=== PATIENT | male | born 1950 | race Caucasian/White ===

== ENCOUNTER → 2018-11-25 09:44 | Outpatient (CLI) | payer MEDICARE, BC, SELFPAY ==
[2018-10-13 08:17] VITALS: BMI 28.6
--- NOTE | 2018-11-25 09:54 | RAD_ITS ---
STUDY: X-RAY - RIGHT HAND REASON FOR EXAM: Male, 68 years old. Pain in the right hand, swelling. TECHNIQUE: 3 view(s) of the hand. COMPARISON: None. 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 Otherwise. Minimal features of the interphalangeal joints. No apparent degeneration of the metacarpophalangeal joints. No significant degenerative features in the wrist. No fracture. No apparent soft tissue swelling. Tiny radiodense probably metallic fragment apparently within the skin to the base of the thumb at the level of the metacarpal phalangeal joint. RAD/Hand Min 3 Views IMPRESSION: DJD. No acute radiographic abnormality is otherwise evident. There is no deep soft tissue gas. No apparent soft tissue swelling. There is a radiodense probably metallic fragment in the soft tissue at the base of the thumb. Electronically Signed: Alonzo Thurman MD at 10:29 EDT Tel , Service support ,
== END ==
PROVIDERS: Family Provider Internal Medicine; PCP Internal Medicine; Referring Provider Internal Medicine; Visit Provider Internal Medicine
DX: M79.641 Pain in right hand (principal)
CPT/HCPCS: 73130

== ENCOUNTER → 2020-12-22 10:30 | Outpatient (CLI) | payer MEDICARE, BC, SELFPAY | PROVIDERS: PCP Internal Medicine; Visit Provider Internal Medicine | DX: U07.1 COVID-19 (principal) | CPT/HCPCS: 87635; U0005; U0003 ==

== ENCOUNTER 2020-12-23 14:35 | Outpatient (CLI) | payer MEDICARE, BC, SELFPAY ==
[2020-12-23 14:53] VITALS: BP 140/85; PULSE 65; RESP 16; TEMP 37.2; O2SAT 98; BMI 26.7
[2020-12-23] MEDS: 0.9% Saline Lock 10 ML Syringe IV (15:03)
[2020-12-23 15:35] VITALS: BP 142/86; PULSE 64; RESP 16; TEMP 37; O2SAT 99
[2020-12-23 16:37] VITALS: BP 140/86; PULSE 62; RESP 16; TEMP 37.6
== END 2020-12-23 16:40 | disposition home or self-care (01) ==
LOC: MS2OUT 14:35 → MS2 14:36
PROVIDERS: PCP Internal Medicine; Referring Provider Nurse Practitioner Family; Visit Provider Nurse Practitioner Family
DX: Z23 Encounter for immunization (principal); U07.1 COVID-19
CPT/HCPCS: J7050; M0243; A4216; Q0244

== ENCOUNTER 2023-02-15 14:27 | Outpatient (RCR) | payer MEDICARE, BC, SELFPAY ==
--- NOTE | 2023-02-15 15:57 | HP.PTEVAL ---
Patient's Visit Information Visit Information Visit Information: ALAINA WORKMAN is a 72 year old M referred to Physical Therapy by Dr. Dahlia Jo MD with a diagnosis of NECK PAIN. Date of Evaluation: 02/15/23 Physical Therapist: Hawk Knight PT, Cert MDT, OCS Visit Plan Frequency: 2x /Week Duration: 4 Weeks Plan: WILL TRY HEP PT INTERVTIONS CERVICAL ROM ,POSTURAL EX'S ,THORACIC MOBILITY ,AND MANUAL THERAPY ,ICTX Subjective Subjective: This 72 y/o male presents to physical therapy with neck pain. Patient has had symptoms for ~ 2 months with tingling in arm and stiffness in neck . Symptoms progressively worsen. Seen DR Matthews routine visit but mention about neck issues. No x-rays or medication. Aggravating factors in AM ,sitting ,laying down. Alleviating factors not specific. Denies HYDE /nausea/tinnitus/. Patient sleeping good at night. Patient golf and doesn't symptoms. Patient has no trauma. Patient has h/o of pain in neck. Patient gaols to decrease symptoms in neck. SOCAIL: VOCATION: retired HOOBIES: golfing/skiing Objective Objective: POSTURE: rounded shoulders NEURO: denies paresthesia/tingling, reflexes C5-6-7 PALAPTION: UT /levator AROM: BUE WFL MMT: grossly 5/5 CERVICAL ROM: min loss ,extension ,lateral flexion/rotation mod tight Special Tests C/S Radiculapathy - Left Upper limb tension test: Negative C/S Radiculapathy - Right Upper limb tension test: Negative C/S Radiculapathy - Left Spurlings: Positive C/S Radiculapathy - Right Spurlings: Negative C/S Radiculapathy - Left Cervical distraction: Negative C/S Radiculapathy - Right Cervical distraction: Negative C/S Radiculapathy - Left Relief test: Negative C/S Radiculapathy - Right Relief test: Negative Sharp Dionicio: Negative Vertebral Artery Test: Negative Alar Ligament Test: Negative Balance/Special Test Scores Oswestry Neck Score: 4 Goals Goal 1:: Patient to be I with HEP for neck Goal Time Frame: 4-6 Weeks Goal 2:: Patient to improve cervical ROM for function of recovery to improve function with driving to left Goal Time Frame: 4-6 Weeks Goal 3:: Patient to demonstrate 50% improve function with less pain Goal Time Frame: 4-6 Weeks Goal 4:: Patient to improve neck oswestry score by 5 points to improve function and QOL Goal Time Frame: 4-6 Weeks Rehabilitation Potential Physical Therapy Diagnosis: Patient has cervical pain due to possible foraminal stenosis left side with pain with position and motion testing to left thus benefit from PT and HEP Rehabilitation Potential: Good Anticipated Interventions Patient/Client Instruction: Educate patient on: Condition and Plan of Care For the Purpose of:: To decrease pain, To increase ROM, To improve muscle performance and motor function, To increase tolerance to activity/condition/position, To improve ability of physical actions for home/community/work/leisure, To improve health of tissue, To decrease soft tissue restriction, To increase flexibility/ROM, To prevent re-injury and To improve tolerance to ADL's Therapeutic Exercise to Include: Strength training, Postural training, Flexibilty training and Dynamic Lumbar Stabilization For the Purpose of:: To decrease pain, To increase ROM, To improve muscle performance and motor function, To improve ability to perform ADL's, To increase tolerance to activity/condition/position, To improve ability of physical actions for home/community/work/leisure, To improve health of tissue, To decrease soft tissue restriction, To increase flexibility/ROM, To prevent re-injury and To improve tolerance to ADL's TENS: Yes IF ES: Yes Cryotherapy (ice pack, ice massage): Yes Thermo therapy (hot pack): Yes Ultrasound (thermal/non thermal): Yes For the Purpose of:: To decrease pain, To increase ROM, To improve nutrient delivery to tissue, To improve health of tissue and To decrease soft tissue restriction Text: Thank you for the opportunity to evaluate your patient. For Medicare and Medicare HMO plans, please review the plan of care and approve it. It will need to be FAXED BACK to us at [phone] for Medicare purposes. For Medicare only, by signing this I certify the plan of care. Please let me know if there are questions or concerns regarding this plan of care. Physician Signature: Date:
== END 2023-02-15 19:00 | disposition home or self-care (01) ==
LOC: PT 14:27
PROVIDERS: PCP Internal Medicine; Referring Provider Internal Medicine; Visit Provider Internal Medicine
DX: M54.2 Cervicalgia (principal)
CPT/HCPCS: 97110; 97162

== ENCOUNTER → 2023-10-10 | Outpatient (CLI) | payer MEDICARE, BC, SELFPAY ==
--- NOTE | 2023-10-22 11:46 | NEURO ---
NCS and/or EMG Patient Report Ordering Doctor: Dahlia Jo DATE OF SERVICE: 10/22/23 Suraj presents with complaints of neck pain and left upper extremity burning. Electrodiagnostic Findings: Left median motor nerve demonstrates normal distal latency, amplitude and conduction velocity. Left ulnar motor response is normal. Prolonged left median F-wave. Normal left ulnar F-wave. Prolonged left median sensory latency at the wrist and palm. Needle EMG testing was performed in the left upper limb. All muscles tested showed no evidence of denervation with normal motor unit action potentials. Electrodiagnostic Assessment: This is an abnormal study in the left upper limb. 1) Findings suggestive of left-sided median mononeuropathy, consistent with a mild left carpal tunnel syndrome. 2) No electrodiagnostic evidence for cervical radiculopathy or brachial plexopathy. 3) No electrodiagnostic evidence for cubital tunnel syndrome. Multi Select Codes Neurology Neurology Interp Codes: 30015-20 Musc test done w/n test comp (interp) and 49797-27 Nrv cndj test 7-8 studies (interp)
== END | disposition home or self-care (01) ==
PROVIDERS: PCP Internal Medicine; Referring Provider Internal Medicine; Visit Provider Internal Medicine
DX: R20.2 Paresthesia of skin (principal)
CPT/HCPCS: 95886; 95910

== ENCOUNTER → 2025-01-12 | Outpatient (CLI) | payer MEDICARE, BC, SELFPAY ==
[2025-01-12 13:05] LABS: Red Blood Cells-Urine 0 SEEN /hpf (0-5); Squamous Epithelial Cells - UA 0 SEEN /hpf (0-5)
[2025-01-12 13:11] LABS: Hematocrit 46.4 % (40-54); Hemoglobin 15.4 g/dL (13.0-16.5); Immature Granulocytes Count 0.020 X10^3/uL (0.0-0.0); Mean Corp Hgb Conc 33.2 g/dL (32-36); Mean Corpuscular Volume 91.0 fL (80-94); Mean Platelet Vol. 9.2 fl (6.2-12.0); NRBC Flagged by Analyzer 0 % (0-5); Platelet Count 280 K/mm3 (150-450); RBC Distribution Width CV 11.9 % (11.6-14.6); RBC Distribution Width SD 39.3 fl (35.1-43.9); Red Blood Count 5.10 M/mm3 (4.6-6.2); White Blood Count 6.8 K/mm3 (4.4-11.0)
[2025-01-12 13:13] LABS: Color, Urine Yellow (Yellow); Glucose, Dipstick Normal (Normal); Ketone-Dipstick Negative (Negative); Leukocyte Esterase-Dipstick Negative /ul (Negative); Nitrite-Dipstick Negative (Negative); Occult Blood-Urine Negative /ul (Negative); Protein-Dipstick 15 mg/dl (Negative); Specific Gravity, Urine 1.015 (1.002-1.030); Urine Bilirubin Dipstick Negative (Negative)
[2025-01-12 13:27] LABS: Mucous, Urine RARE /hpf (<or=2+)
[2025-01-12 13:30] LABS: AST(SGOT) 18 U/L (<=37); Alanine Aminotransfer ALT/SGPT 19 U/L (<=46); Albumin, Serum 4.5 g/dL (3.4-4.8); Alkaline Phosphatase 82 U/L (40-129); Anion Gap 10 (5-15); BUN 16 mg/dL (4-19); BUN/Creat Ratio 16.2 RATIO (10-20); Calcium,Total 9.8 mg/dL (7.6-11.0); Carbon Dioxide 27.1 mmol/L (21.0-32.0); Chloride 103 mmol/L (98-108); Globulin 2.5 g/dL (2.2-4.2); Glucose 104 mg/dL (70-99); Potassium 5.0 mmol/L (3.3-5.1)
[2025-01-12 14:00] LABS: Creatinine, Urine (random) 108.00 mg/dL (39.00-259.00); Microalbumin,Random Urine < 12.0 mg/L (<20 mg/L)
== END | disposition home or self-care (01) ==
LOC: LABSPEC 12:19
PROVIDERS: PCP Internal Medicine; Referring Provider Internal Medicine; Visit Provider Internal Medicine
DX: I11.9 Hypertensive heart disease without heart failure (principal); R73.09 Other abnormal glucose
CPT/HCPCS: 80053; 81001; 82043; 82570; 85025; 87086